=== PATIENT | male | born 1970 | race Caucasian/White ===

== ENCOUNTER 2016-04-28 15:51 | Emergency (ER) | payer SELFPAY ==
[2016-04-28 16:47] LABS: BASOPHIL 0.6 % (0-2); EOSINOPHIL 1.1 % (0-5); HGB 15.5 g/dl (13.2-18.0); LYMPHOCYTE 16.5 % (15-48); MCH 28.7 pg (25.0-31.0); MCHC 35.2 g/dL (32.0-36.0); MCV 81.3 fL (78.0-100.0); MONOCYTE 8.8 % (0-12); MPV 8.8 fL (6.0-9.5); PLT 199 K/uL (150-400); RBC 5.41 M/uL (4.70-6.00); RDW 13.3 % (11.5-14.0); WBC 9.9 K/uL (4.0-10.5)
[2016-04-28 16:59] LABS: INR 0.96 (0.9-1.2); PROTHROMBIN TIME 12.4 SECONDS (11.7-14.0)
[2016-04-28 17:17] LABS: ALBUMIN 4.4 g/dL (3.5-5.0); BILIRUBIN - TOTAL 0.6 mg/dL (0.1-1.0); CREATININE 0.9 mg/dL (0.7-1.2); GLOBULIN (CALCULATION) 2.7 g/dL (2.2-4.2); POTASSIUM 3.6 mmol/L (3.5-5.1); TOTAL PROTEIN 7.1 g/dL (6.4-8.3)
== END 2016-04-28 18:44 | disposition other institution (70) ==
LOC: FER 15:51
PROVIDERS: Emergency Medicine
DX: I63.519 Cerebral infarction due to unspecified occlusion or stenosis of unspecified middle cerebral artery (principal); R20.2 Paresthesia of skin; I10 Essential (primary) hypertension; Z82.49 Family history of ischemic heart disease and other diseases of the circulatory system
CPT/HCPCS: 36415; 70450; 71010; 80053; 84484; 85025; 85610; 93005

== ENCOUNTER 2021-08-13 14:17 | Emergency (ER) | payer OTHER ==
[2021-08-13 14:47] LABS: BASOPHIL 0.5 % (0-2); HCT 46.4 % (42.0-52.0); HGB 15.7 g/dl (13.2-18.0); LYMPHOCYTE 18.6 % (15-48); MCH 28.8 pg (25.0-31.0); MCHC 33.8 g/dL (32.0-36.0); MONOCYTE 9.1 % (0-12); MPV 8.9 fL (6.0-9.5); NEUTROPHIL 70.6 % (41-80); NRBC 0; PLT 242 K/uL (150-400); RBC 5.46 M/uL (4.70-6.00); RDW 12.7 % (11.5-14.0); WBC 9.1 K/uL (4.0-10.5)
[2021-08-13 14:51] LABS: INR 1.06 (0.9-1.2); PROTHROMBIN TIME 13.2 SECONDS (11.8-13.4); PTT 28.9 SECONDS (24.4-34.7)
[2021-08-13 14:57] LABS: ALBUMIN 4.2 g/dL (3.4-5.0); BILIRUBIN - TOTAL 0.6 mg/dL (0.2-1.0); BUN/CREAT RATIO (CALC) 17.6 RATIO; CREATININE 1.02 mg/dL (0.67-1.17); GLOBULIN (CALCULATION) 3.9 g/dL; POTASSIUM 3.7 mmol/L (3.5-5.1); TOTAL PROTEIN 8.1 g/dL (6.4-8.2)
== END 2021-08-13 17:19 | disposition home or self-care (01) ==
LOC: FER 14:17
PROVIDERS: Emergency Medicine
DX: G45.4 Transient global amnesia (principal); I10 Essential (primary) hypertension; Z91.018 Allergy to other foods; Z79.82 Long term (current) use of aspirin; Z79.899 Other long term (current) drug therapy; Z28.310 Unvaccinated for COVID-19
CPT/HCPCS: 36415; 70450; 80053; 85025; 85610; 85730; 93005